=== PATIENT | male | born 1950 | race Caucasian/White ===

== ENCOUNTER 2017-07-01 19:09 | Observation (INO) | payer MEDICARE, OTHER ==
--- NOTE | 2017-07-01 19:20 | ERPHSYRPT ---
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 clinically denies CP but has neck/jaw pain N/V and diaphoresis; chronic COPD and sobreath on CPAP; prior neg cath 15 years ago; Renal dx so will have to check RFTs prior to CT and may have to settle for no contrast; Timing/Duration: yesterday Activities at Onset: none Quality: dullness, pressure Location: shoulder, back Chest Pain Radiation: jaw, neck Severity of Pain-Max: moderate Severity of Pain-Current: moderate Modifying Factors: Improves With: nothing Associated Symptoms: nausea, vomiting, shortness of breath, diaphoresis, back pain Prior Chest Pain/Cardiac Workup: no prior chest pain Nitro Today/Relief: 0.4 mg x 1 (nitro paste - not tablet ), provided by ED Aspirin Treatment Today: 81 mg x 1, provided at home Allergies/Adverse Reactions: Penicillins Allergy (Verified 07/01/17 19:32) Home Medications: Amlodipine Besylate 0 mg DAILY 07/01/17 [History] Aspirin 81 mg PO DAILY 07/01/17 [History] Ezetimibe 1 mg 07/01/17 [History] Meloxicam [Mobic] 1 tab DAILY 07/01/17 [History] Potassium Chloride 20 Meq [Klor-Con 20 MEQ] 1 tab DAILY 07/01/17 [History] Stomach Meds 0 mg 07/01/17 [History] - Review of Systems Constitutional: No Fever, No Chills Eyes: No Symptoms Ears, Nose, & Throat: No Symptoms Respiratory: Dyspnea, No Cough Cardiac: Edema, No Chest Pain, No Syncope Abdominal/Gastrointestinal: Nausea, Vomiting, Diarrhea, No Abdominal Pain Genitourinary Symptoms: No Symptoms, No Dysuria Musculoskeletal: Back Pain, Neck Pain, No Fall Skin: No Rash Neurological: No Dizziness, No Focal Weakness, No Sensory Changes Psychological: No Symptoms Endocrine: No Symptoms Hematologic/Lymphatic: No Symptoms Immunological/Allergic: No Symptoms All Other Systems: Reviewed and Negative - Past Medical History Pertinent Past Medical History: Yes Cardiac History: Deep Vein Thrombosis, Hypertension, Other (prior neg cath 15 years ago) Respiratory History: COPD - Nursing Vital Signs Nursing Vital Signs: Initial Vital Signs Temperature 97.7 F 07/01/17 19:25 Pulse Rate 58 L 07/01/17 19:25 Respiratory Rate 16 07/01/17 19:25 Blood Pressure 137/62 07/01/17 19:25 O2 Sat by Pulse Oximetry 96 07/01/17 19:25 Pain Scale Pain Intensity 5 - Physical Exam General Appearance: no apparent distress, alert Eye Exam: PERRL/EOMI, eyes nml inspection Ears, Nose, Throat Exam: normal ENT inspection, moist mucous membranes Neck Exam: normal inspection, non-tender, supple, full range of motion Respiratory Exam: airway intact, wheezing, No respiratory distress Cardiovascular Exam: regular rate/rhythm, normal heart sounds, normal peripheral pulses Gastrointestinal/Abdomen Exam: soft, No tenderness, No mass Rectal Exam: deferred Back Exam: normal inspection, No CVA tenderness, No vertebral tenderness Extremity Exam: normal inspection, normal range of motion Neurologic Exam: alert, oriented x 3, cooperative, normal mood/affect, sensation nml, No motor deficits Skin Exam: normal color, warm, dry - Course Nursing assessment & vital signs reviewed: Yes EKG Interpreted by Me: Sinus Rhythm, NORMAL AXIS, 1st degree AV Block, Right Bundle Branch Block, Non-specific ST Changes - Radiology Exams Chest X-ray Interpretation: Teleradiologist Report, No Pneumonia, No Pneumothorax, No Infiltrates Ordered Tests: Active Orders 24 hr Category Date Time Status Irrigation Installation Specialist STAT Care 07/01/17 19:23 Active Clean Catch Urine Specimen STAT Care 07/01/17 19:21 Active EKG-ER Only STAT Care 07/01/17 19:21 Active Pulse Oximetry (ED) STAT Care 07/01/17 19:21 Active CHEST 2 VIEWS (PA AND LAT) Stat Exams 07/01/17 19:22 Taken CBC W DIFF Stat Lab 07/01/17 19:45 Completed CK-Creatinine Phosphokinase Stat Lab 07/01/17 19:45 Completed CMP Stat Lab 07/01/17 19:45 Completed CULTURE,URINE Stat Lab 07/01/17 20:05 Received D-DIMER QUANTITATION Stat Lab 07/01/17 19:45 Completed LIPASE Stat Lab 07/01/17 19:45 Completed Lactic Acid Stat Lab 07/01/17 19:54 Completed NT PRO BNP Stat Lab 07/01/17 19:45 Completed TROPONIN Q3H Lab 07/01/17 19:45 Completed TROPONIN Q3H Lab 07/01/17 22:30 Ordered TROPONIN Q3H Lab 07/02/17 01:30 Ordered TROPONIN Q3H Lab 07/02/17 04:30 Ordered TROPONIN Q3H Lab 07/02/17 07:30 Ordered UA W/ MICROSCOPIC Stat Lab 07/01/17 20:05 Completed Medication Summary Generic Name Dose Route Start Last Admin Trade Name Freq PRN Reason Stop Dose Admin Sodium Chloride 1,000 mls @ 100 mls/hr 07/01/17 19:30 07/01/17 19:28 Sodium Chloride 0.9% 1000 Ml IV 07/31/17 19:29 100 mls/hr .Q10H DOROTHY Administration Discontinued Medications Generic Name Dose Route Start Last Admin Trade Name Freq PRN Reason Stop Dose Admin Sodium Chloride 250 mls @ 999 mls/hr 07/01/17 19:24 07/01/17 19:32 Sodium Chloride 0.9% 1000 Ml IV 07/01/17 19:39 Not Given .Q16M STA Ceftriaxone Sodium/Dextrose 1 g in 50 mls @ 100 mls/hr 07/01/17 20:14 20:17 Rocephin 1 Gm-D5w 50 Ml Bag IV 07/01/17 20:43 100 mls/hr STAT STA Administration Ceftriaxone Sodium/Dextrose Confirm 07/01/17 20:17 Rocephin 1 Gm-D5w 50 Ml Bag Administered 07/01/17 20:18 Dose 1 g in 50 mls @ ud IV .STK-MED ONE Nitroglycerin 1 gm 07/01/17 19:26 07/01/17 19:31 Nitro-Bid 2% Ud Packets TOP 07/01/17 19:27 1 gm STAT ONE Administration Nitroglycerin Confirm 07/01/17 19:31 Nitro-Bid 2% Ud Packets Administered 07/01/17 19:32 Dose 1 gm .ROUTE .STK-MED ONE Lab/Rad Data: Laboratory Result Diagrams 07/01/17 19:45 07/01/17 19:45 Laboratory Results 07/01/17 07/01/17 07/01/17 Range/Units 20:05 19:54 19:45 WBC (4.0-10.5) K/mm3 RBC (4.1-5.6) M/mm3 Hgb (12.5-18.0) gm/dl Hct (42-50) % MCV (78-100) fl MCH (26-32) pg MCHC (32-36) g/dl RDW (11.5-14.0) % Plt Count (150-450) K/mm3 MPV (6-9.5) fl Gran % (36.0-66.0) % Lymphocytes % (24.0-44.0) % Monocytes % (0.0-12.0) % Eosinophils % (0.00-5.0) % Basophils % (0.0-0.4) % Basophils # (0-0.4) D-Dimer (0-500) ng/mL Sodium (136-145) mEq/L Potassium (3.5-5.1) mEq/L Chloride (98-107) mEq/L Carbon Dioxide (21-32) mEq/L Anion Gap (5-15) MEQ/L BUN (9-20) mg/dL Creatinine (0.55-1.30) mg/dl Estimated GFR ML/MIN Glucose (70-110) MG/DL Lactic Acid 1.4 (0.4-2.0) Calcium (8.5-10.1) mg/dL Total Bilirubin (0.2-1.0) mg/dL AST (15-37) U/L ALT (12-78) U/L Alkaline Phosphatase (46-116) U/L Creatine Kinase (39-308) U/L Troponin I < 0.017 (0.000-0.056) ng/ml NT-Pro-B Natriuret Pep (0-125) pg/ml Serum Total Protein (6.4-8.2) gm/dL Albumin (3.4-5.0) g/dL Lipase (73-393) U/L Ur Collection Type CLEAN CATCH Urine Color STRAW (YELLOW) Urine Appearance SLIGHTLY CLOUDY (CLEAR) Urine pH 5.0 (5-6) Ur Specific [place] 1.020 (1.005-1.025) Urine Protein 500 (Negative) Urine Ketones NEGATIVE (NEGATIVE) Urine Blood 50 (0-5) Femi/ul Urine Nitrite NEGATIVE (NEGATIVE) Urine Bilirubin NEGATIVE (NEGATIVE) Urine Urobilinogen 1 (0-1) mg/dL Ur Leukocyte Esterase 1+ (NEGATIVE) Urine Microscopic RBC 10-15 (0-2) /HPF Urine Microscopic WBC 0-2 (0-5) /HPF Ur Epithelial Cells MODERATE (FEW) /HPF Urine Bacteria FEW (NEGATIVE) /HPF Urine Mucus MANY (NEGATIVE) /HPF Urine Glucose NEGATIVE (NEGATIVE) mg/dL Specimen Received 07/01/17:200407/01/17 07/01/17 07/01/17 Range/Units 19:45 19:45 19:45 WBC 17.0 H (4.0-10.5) K/mm3 RBC 5.37 (4.1-5.6) M/mm3 Hgb 16.0 (12.5-18.0) gm/dl Hct 48.3 (42-50) % MCV 89.9 (78-100) fl MCH 29.8 (26-32) pg MCHC 33.1 (32-36) g/dl RDW 15.1 H (11.5-14.0) % Plt Count 222 (150-450) K/mm3 MPV 9.8 H (6-9.5) fl Gran % 86.0 H (36.0-66.0) % Lymphocytes % 7.0 L (24.0-44.0) % Monocytes % 6.5 (0.0-12.0) % Eosinophils % 0.4 (0.00-5.0) % Basophils % 0.1 (0.0-0.4) % Basophils # 0.02 (0-0.4) D-Dimer 499 (0-500) ng/mL Sodium 137 (136-145) mEq/L Potassium 3.8 (3.5-5.1) mEq/L Chloride 102 (98-107) mEq/L Carbon Dioxide 24.0 (21-32) mEq/L Anion Gap 14.9 (5-15) MEQ/L BUN 13 (9-20) mg/dL Creatinine 1.35 H (0.55-1.30) mg/dl Estimated GFR 56 ML/MIN Glucose 103 (70-110) MG/DL Lactic Acid (0.4-2.0) Calcium 8.8 (8.5-10.1) mg/dL Total Bilirubin 0.80 (0.2-1.0) mg/dL AST 23 (15-37) U/L ALT 29 (12-78) U/L Alkaline Phosphatase 98 (46-116) U/L Creatine Kinase 227 (39-308) U/L Troponin I (0.000-0.056) ng/ml NT-Pro-B Natriuret Pep 210 H (0-125) pg/ml Serum Total Protein 7.7 (6.4-8.2) gm/dL Albumin 3.3 L (3.4-5.0) g/dL Lipase 260 (73-393) U/L Ur Collection Type Urine Color (YELLOW) Urine Appearance (CLEAR) Urine pH (5-6) Ur Specific [place] (1.005-1.025) Urine Protein (Negative) Urine Ketones (NEGATIVE) Urine Blood (0-5) Femi/ul Urine Nitrite (NEGATIVE) Urine Bilirubin (NEGATIVE) Urine Urobilinogen (0-1) mg/dL Ur Leukocyte Esterase (NEGATIVE) Urine Microscopic RBC (0-2) /HPF Urine Microscopic WBC (0-5) /HPF Ur Epithelial Cells (FEW) /HPF Urine Bacteria (NEGATIVE) /HPF Urine Mucus (NEGATIVE) /HPF Urine Glucose (NEGATIVE) mg/dL Specimen Received - Progress Progress: improved, re-examined Air Movement: good Progress Note: 07/01/17 19:38 had a measure of BP in 80s but when rechecked was 130s ; pt does now report some dizziness earlier; 07/01/17 19:56 pt unable to fit our CT scanner due to torso size and would be just beyond our limit at 400 plus pounds. may have to transfer to [facility] where larger scanner available; 07/01/17 20:15 pt has had cephalosporins OK in past , discussed ab and elevated WBC and he wishes to proceed with rocephin. 07/01/17 20:17 improved some after nitro 07/01/17 21:[address] Manuel and pt and pt prefers obs here and understands the limitations of testing performed and that additional pathology such as dissection cannot be excluded, even though symptoms not classic ( were dull and not tearing) and that OH could be evolving as well; Blood Culture(s) Obtained: No Antibiotics given: Yes Discussed with : Kaleb Will see patient in: hospital (observation) Counseled pt/family regarding: lab results, diagnosis, need for follow-up, rad results - Departure Time of Disposition: 21:12 Departure Disposition: Observation Clinical Impression: UTI (urinary tract infection), elevated BNP with atypical CP Condition: Good Critical Care Time: No Referrals: Provider,Unknown [Primary Care Provider] - Instructions: Atypical Chest Pain
[2017-07-01] MEDS ORDERED: NITRO-BID 2% UD PACKETS TOP ONE (19:26)
[2017-07-01] MEDS ORDERED: Sodium Chloride 0.9% 1000 ML 1,000 ML ONE (19:26)
[2017-07-01] MEDS: Sodium Chloride 0.9% 1000 ML 1,000 ML IV SCH (19:28)
[2017-07-01] MEDS ORDERED: NITRO-BID 2% UD PACKETS ONE (19:31)
[2017-07-01 19:51] LABS: BASOPHIL % 0.1 % (0.0-0.4); Eosinophil % 0.4 % (0.00-5.0); Mean Cell Volume 89.9 fl (78-100); Mean Corpuscular Hemoglobin 29.8 pg (26-32); Mean Platelet Volume 9.8 fl (6-9.5); Monocytes % 6.5 % (0.0-12.0); Platelet Count 222 K/mm3 (150-450); Red Blood Count 5.37 M/mm3 (4.1-5.6); Red Cell Distribution Width 15.1 % (11.5-14.0)
[2017-07-01] MEDS ORDERED: ROCEPHIN 1 Gm-D5w 50 ml Bag** 1 G/50 ML IVPB IV STA (20:14)
[2017-07-01] MEDS ORDERED: ROCEPHIN 1 Gm-D5w 50 ml Bag** 1 G/50 ML IVPB IV ONE (20:17)
[2017-07-01 20:22] LABS: ADD URINE CULTURE? YES (NO); Bilirubin NEGATIVE (NEGATIVE); Blood 50 Ery/ul (0-5); COMPLETE URINE MICROSCOPIC? YES; Collection Type CLEAN CATCH; Glucose NEGATIVE (NEGATIVE); Leukocyte Esterase 1+ (NEGATIVE)
[2017-07-01 20:23] LABS: Bacteria FEW /HPF (NEGATIVE); Epithelial Cells MODERATE /HPF (FEW); Mucus MANY /HPF (NEGATIVE); WBC 0-2 /HPF (0-5)
[2017-07-01 20:26] LABS: ALBUMIN 3.3 g/dL (3.4-5.0); ANION GAP 14.9 MEQ/L (5-15); BILIRUBIN,TOTAL 0.8 mg/dL (0.2-1.0); Potassium 3.8 mEq/L (3.5-5.1); Total Protein 7.7 gm/dL (6.4-8.2)
[2017-07-01] MEDS ORDERED: MILK OF MAGNESIA 30 ML PO PRN (22:22)
[2017-07-01] MEDS ORDERED: Senokot-S Tablet PO PRN (22:22)
[2017-07-01] MEDS ORDERED: NovoLOG Insulin SQ PRN (22:22)
[2017-07-01] MEDS ORDERED: MAALOX ES 30 ML UNIT DOSE PO PRN (22:22)
[2017-07-01] MEDS ORDERED: Zofran 4 MG/2 ML VIAL IV PRN (22:22)
[2017-07-01] MEDS ORDERED: TYLENOL 325 MG PO PRN (22:22)
--- NOTE | 2017-07-01 22:36 | XRAY ---
Indication: Chest pain and short of breath. Comparison: None PA/lateral chest does not completely include the left lung apex. Lungs clear. Heart is not enlarged. Bony thorax intact with mild osteopenia and degenerative changes. Impression: Nonacute limited chest. Comment: Preliminary interpretation was made by [facility]. No discrepancy.
[2017-07-01] MEDS: ENOXAPARIN SODIUM SQ SCH (23:08)
[2017-07-01] MEDS: Pepcid 20 MG VIAL IV SCH (23:08)
[2017-07-02] MEDS: MORPHINE SULFATE 2 MG INJ IV PRN ×2 (00:18→07:32)
[2017-07-02] MEDS: Sodium Chloride 0.9% 1000 ML 1,000 ML IV SCH (06:26)
[2017-07-02] MEDS ORDERED: Ecotrin 325 MG PO SCH (10:00)
--- NOTE | 2017-07-02 10:20 | PCM.SSS ---
History of Present Illness - Chief Complaint Chief Complaint: Shortness of Breath History of Present Illness: is a 67 year old male with no local MD who came to the ER c/o bilat shoulder pain and back pain, 9/10 aching, radiating into the neck and R face. He woke up yesterday with diarrhea and vomiting. He was camping and sleeping in his [place] ([facility]). He has no hx CAD, he had a negative heart catheterization 15 years ago. Has hx DVT. His father had an LA age 65. He is a former smoker. Morbidly obese. He has purposefully lost over 100 lb in the past year. +FHx DM, but pt is not diabetic. Pt wiht COPD. He has tolerated po here lsat night and this morning, although he did have some diarrhea this morning. Having some L anterior shoulder pain this morning, 4-5/10, radiating into L arm. - Review of Systems Constitutional: Fever, Chills (x 1 d) Eyes: Vision Changes (decreased acuity recently) Ears, Nose, & Throat: Hearing Changes (possibly, per girlfriend) Respiratory: Cough (chronic, productive in a.m.) Cardiac: No Chest Pain, No Edema, No Syncope Abdominal/Gastrointestinal: Nausea, Vomiting, Diarrhea Musculoskeletal: Arthralgias (arthritis, chronic knee pain), Back Pain, Neck Pain All Other Systems: Reviewed and Negative Medications & Allergies Home Medications: Home Medication List Aspirin 81 mg PO DAILY 07/01/17 [History Confirmed 07/01/17] Amlodipine Besylate 5 mg PO DAILY #30 tablet 07/02/17 [Rx] Cephalexin Mh 500 mg [Keflex 500 mg] 500 mg PO QID #20 capsule 07/02/17 [Rx] Esomeprazole Magnesium 20 mg PO DAILY #30 capsule. 07/02/17 [Rx] Meloxicam [Mobic] 1 tab PO DAILY #30 tablet 07/02/17 [Rx] Potassium Chloride 20 Meq [Klor-Con 20 MEQ] 1 tab PO DAILY #30 tab 07/02/17 [Rx] Allergies/Adverse Reactions: Allergies Allergy/AdvReac Type Severity Reaction Status Date / Time Penicillins Allergy Verified 07/01/17 19:32 - Past Medical History Past Medical History: Yes Neurological History: No Pertinent History ENT History: No Pertinent History Cardiac History: Deep Vein Thrombosis, Hypertension, Other Respiratory History: Asthma, COPD, Sleep Apnea Endocrine Medical History: No Pertinent History Musculoskelatal History: Arthritis, Fractures GI Medical History: Ulcer History: Renal Disease Pyscho-Social History: Depression Male Reproductive Disorders: Other Comment: fx patella 2016, head injury in 70s thrombosis in both legs table saw accident. erectile dysfunction - Past Surgical History Past Surgical History: Yes Neuro Surgical History: No Pertinent History Cardiac History: Cardiac Catheterization Respiratory Surgery: No Pertinent History GI Surgical History: No Pertinent History Genitourinary Surgical Hx: No Pertinent History Musculskeletal Surgical Hx: Amputation, Orthopedic Surgery, Other Male Surgical History: No Pertinent History Other Surgical History: knee surgery, 2nd and 4th finger amputated by table saw. 3rd finger sewed back on. - Social History Smoking Status: Former smoker How long have you smoked: 28 years. Exposure to second hand smoke: Yes Alcohol: Occasionally Drug Use: none - Physical Exam Vital Signs: Vital Signs - 24 hr Temp Pulse Resp BP Pulse Ox 07/02/17 07:33 98.0 F 46 L 18 148/87 95 07/02/17 06:00 98.0 F 47 L 11 L 152/79 98 07/02/17 04:00 98.0 F 64 27 H 152/75 95 07/02/17 02:00 51 L 16 137/77 95 07/02/17 00:01 58 L 07/02/17 00:00 97.7 F 58 L 20 125/85 94 L 07/01/17 22:52 97.7 F 58 L 16 177/87 94 L Oxygen-Last 24 hours O2 Percentage 2 Liters = 28% General Appearance: no apparent distress, obese Neurologic Exam: alert, oriented x 3, cooperative Eye Exam: eyes nml inspection Neck Exam: normal inspection, supple Respiratory Exam: normal breath sounds, lungs clear, diminished breath sounds, prolonged expirations, No crackles/rales, No rhonchi, No wheezing Cardiovascular Exam: regular rate/rhythm, normal heart sounds, No murmur Gastrointestinal/Abdomen Exam: soft, normal bowel sounds, hernia (tiny reducible umbilical hernia), No tenderness, No distention, No mass Back Exam: normal inspection Extremity Exam: pedal edema (trace LE edema bilat) Skin Exam: normal color, warm, dry Results - Labs Lab/Micro Results: Accuchecks Date 07/02/17 Date 07/01/17 Time 06:59 Time 22:58 Accucheck Value: 85 Accucheck Value: 119 Lab Results-Last 24 Hours 07/01/17 07/02/17 07/02/17 Range/Units 22:35 01:30 04:35 Troponin I < 0.017 < 0.017 < 0.017 (0.000-0.056) ng/ml Triglycerides (30-200) mg/dL Cholesterol (100-200) mg/dL LDL Cholesterol (5-99) mg/dL HDL Cholesterol (35-60) mg/dL Heart Disease Risk Ratio 07/02/17 07/02/17 Range/Units 05:25 07:32 Troponin I < 0.017 (0.000-0.056) ng/ml Triglycerides 153 (30-200) mg/dL Cholesterol 154 (100-200) mg/dL LDL Cholesterol 95 (5-99) mg/dL HDL Cholesterol 30 L (35-60) mg/dL Heart Disease Risk Ratio 5.1 Accuchecks Date 07/02/17 Date 07/01/17 Time 06:59 Time 22:58 Accucheck Value: 85 Accucheck Value: 119 - Radiology Impressions Radiology Exams & Impressions: Radiology Procedures Category Date Time Status ECHO W/2D AND DOPPLER [US] Routine Exams 07/03/17 10:00 Ordered - Other Procedures and Tests Respiratory Therapy 07/01/17 22:31 BiPap/CPAP Assessment ROUTINE 07/03/17 05:00 EKG DAILY 07/04/17 05:00 EKG DAILY 07/05/17 05:00 EKG DAILY Assessment/Plan (1) Back pain Current Visit: Yes Status: Acute Qualifiers: Back pain location: thoracic back pain Chronicity: acute Back pain laterality: midline Qualified Code(s): M54.6 - Pain in thoracic spine Assessment & Plan: Initially there was worry for an aortic dissection. D-Dimer was negative and pain in the back has resolved. LA being ruled out here, and pt will need to follow up with outpatient stress test. Code(s): M54.9 - DORSALGIA, UNSPECIFIED (2) UTI (urinary tract infection) Current Visit: Yes Status: Acute Code(s): N39.0 - URINARY TRACT INFECTION, SITE NOT SPECIFIED Hospital Summary - Hospital Course Hospital Course: Pt admitted with back pain/bilat shoulder pain radiating into neck and face, LA ruled out with 5 neg troponins, aortic dissection considered, unable to do CT due to Cr 1.35. Back pain has resolved today, there just remains L anterior shoulder pain, 4-5/ 10. WBC were elevated to 17,000 and pt was thought to have a UTI. He was given 1g of rocephin in the ER and will be discharged today on po Keflex. Ucx is pending. Pt will follow up with me in 1-2 weeks and will make sure his meds are filled so that he can find a PCP. He would like his outpatient stress test to be in [place] so will have to order it on Monday (tomorrow, Monday, is Labor Day). - Vitals & Intake/Output Vital Signs: Vital Signs Temperature 98.0 F 07/02/17 07:33 Pulse Rate 46 L 07/02/17 07:33 Respiratory Rate 18 07/02/17 07:33 Blood Pressure 148/87 07/02/17 07:33 O2 Sat by Pulse Oximetry 95 07/02/17 07:33 Oxygen-Last Documented O2 Percentage 2 Liters = 28% Intake & Output: Intake & Output 06/29/17 06/30/17 07/01/17 07/02/17 11:59 11:59 11:59 11:59 Intake Total 1054 Balance 1054 Weight 185.122 kg - Lab Result Diagrams: 07/01/17 19:45 07/01/17 19:45 Lab Results-Last 24 Hrs: Accuchecks Date 07/02/17 Date 07/01/17 Time 06:59 Time 22:58 Accucheck Value: 85 Accucheck Value: 119 Lab Results-Last 24 Hours 07/01/17 07/02/17 07/02/17 Range/Units 22:35 01:30 04:35 Troponin I < 0.017 < 0.017 < 0.017 (0.000-0.056) ng/ml Triglycerides (30-200) mg/dL Cholesterol (100-200) mg/dL LDL Cholesterol (5-99) mg/dL HDL Cholesterol (35-60) mg/dL Heart Disease Risk Ratio 07/02/17 07/02/17 Range/Units 05:25 07:32 Troponin I < 0.017 (0.000-0.056) ng/ml Triglycerides 153 (30-200) mg/dL Cholesterol 154 (100-200) mg/dL LDL Cholesterol 95 (5-99) mg/dL HDL Cholesterol 30 L (35-60) mg/dL Heart Disease Risk Ratio 5.1 Micro Results-Entire Visit: Accuchecks Date 07/02/17 Date 07/01/17 Time 06:59 Time 22:58 Accucheck Value: 85 Accucheck Value: 119 - Radiology Exams Ordered Rad Exams-Entire Visit: Radiology Procedures Category Date Time Status ECHO W/2D AND DOPPLER [US] Routine Exams 07/03/17 10:00 Ordered - Procedures and Test Procedures and Tests throughout Hospitalization: Therapy Orders & Screens 07/01/17 22:31 BiPap/CPAP Assessment ROUTINE Comment: 12CM H20 07/01/17 23:29 OT Screen per Nursing Assess Comment: Protocol Order Physician Instructions: Greater than 3 points order OT Admission Screening Reason For Exam: Triggered on Admission Diagnosis: atypical chest pain with elevated BNP; UTI Open Wound/Cellutlitis/Pressure Ulcers: No Acute Fx/ORIF/Change in wt bearing status: No Severe MUSCULOSKELETAL pain: Yes ADL Dysfunction: No Acute CVA w/Hemiparesis/Hemiplegia: No Decreased Functional Mobility/Strength: No Sprain/Strain: No Acute Post-op Mobility Dysfunction: No Total Points: 5 PT Screen per Nursing Assess Comment: Protocol Order Physician Instructions: Greater than 3 points order PT Admission Screenin Reason For Exam: Triggered on Admission Diagnosis: atypical chest pain with elevated BNP; UTI Open Wound/Cellutlitis/Pressure Ulcers: No Acute Fx/ORIF/Change in wt bearing status: No Severe MUSCULOSKELETAL pain: Yes ADL Dysfunction: No Acute CVA w/Hemiparesis/Hemiplegia: No Decreased Functional Mobility/Strength: No Sprain/Strain: No Acute Post-op Mobility Dysfunction: No Total Points: 5 07/02/17 03:16 EKG ROUTINE Comment: Diagnosis: Shortness of Breath 07/03/17 05:00 EKG DAILY Comment: Diagnosis: Shortness of Breath 07/04/17 05:00 EKG DAILY Comment: Diagnosis: Shortness of Breath 07/05/17 05:00 EKG DAILY Comment: Diagnosis: Shortness of Breath - Discharge Disposition: Home, Self-Care Condition: Stable Prescriptions: New Cephalexin Mh 500 mg [Keflex 500 mg] 500 mg PO QID #20 capsule Continue Aspirin 81 mg PO DAILY Esomeprazole Magnesium 20 mg PO DAILY #30 capsule.dr Changed Amlodipine Besylate 5 mg PO DAILY #30 tablet Potassium Chloride 20 Meq [Klor-Con 20 MEQ] 1 tab PO DAILY #30 tab Meloxicam [Mobic] 1 tab PO DAILY #30 tablet Instructions: Atypical Chest Pain Follow up with: Provider,Unknown [Primary Care Provider] -
[2017-07-02 10:29] LABS: BASOPHIL % 0.3 % (0.0-0.4); Eosinophil % 1.5 % (0.00-5.0); Granulocytes % 59.6 % (36.0-66.0); Lymphocytes % 29.4 % (24.0-44.0); Mean Cell Volume 91.7 fl (78-100); Mean Corpuscular Hemoglobin 29.7 pg (26-32); Mean Platelet Volume 11.1 fl (6-9.5); Monocytes % 9.2 % (0.0-12.0); Platelet Count 228 K/mm3 (150-450); Red Blood Count 4.92 M/mm3 (4.1-5.6); Red Cell Distribution Width 15.3 % (11.5-14.0)
[2017-07-02 11:22] VITALS: PULSE 53; O2SAT 97
[2017-07-02] MEDS ORDERED: Protonix 40MG Tablet PO SCH (11:30)
[2017-07-02] MEDS ORDERED: ECOTRIN 81 MG PO SCH (11:30)
[2017-07-02] MEDS ORDERED: Klor Con 10 MEQ PO SCH (11:30)
[2017-07-02] MEDS ORDERED: NORVASC 5 MG PO SCH (11:30)
[2017-07-02] MEDS: ENOXAPARIN SODIUM SQ SCH (11:35)
[2017-07-02] MEDS: Pepcid 20 MG VIAL IV SCH (11:35)
[2017-07-02 11:56] VITALS: BP 152/70
[2017-07-02] MEDS ORDERED: ROCEPHIN 1 Gm-D5w 50 ml Bag** 1 G/50 ML IVPB IV SCH (22:00)
== END 2017-07-02 14:40 | disposition home or self-care (01) ==
LOC: ED 19:09 → ICU 22:07 → UNDOADMOB 22:07 → UNDODISOB 07-02 14:40
PROVIDERS: ADMIT Family Medicine; ATTEND Family Medicine
DX: M54.6 Pain in thoracic spine (principal); N39.0 Urinary tract infection, site not specified; J44.9 Chronic obstructive pulmonary disease, unspecified; I10 Essential (primary) hypertension; G47.30 Sleep apnea, unspecified; N28.9 Disorder of kidney and ureter, unspecified; J45.909 Unspecified asthma, uncomplicated; M19.90 Unspecified osteoarthritis, unspecified site; Z86.718 Personal history of other venous thrombosis and embolism; F32.9 Major depressive disorder, single episode, unspecified; N52.9 Male erectile dysfunction, unspecified; E66.01 Morbid (severe) obesity due to excess calories; Z79.899 Other long term (current) drug therapy; Z89.029 Acquired absence of unspecified finger(s)
CPT/HCPCS: 36415; 71020; 80053; 80061; 81000; 82550; 82962; 83605; 83690; 83721; 83880; 84484; 85025; 85379; 87086; 93005; 93041; 94660; 96360; 96365; 99285; G0378; J0696; J1650; J2270; A9270-GY